=== PATIENT | female | born 2000 | race Asian ===

== ENCOUNTER 2024-04-22 11:54 | Emergency (ER) | payer OTHER ==
[~2024-04-22] VITALS: Ht 162.6 cm; Wt 63.6 kg
[2024-04-22 12:10] VITALS: BP 112/79; TEMP 98.1
[2024-04-22] MEDS ORDERED: ZOFRAN ODT4 MG PO (13:45)
[2024-04-22] MEDS ORDERED: Home Ondansetron ODT 4 MG #2 ODT/PACK PO ONE (13:45)
[2024-04-22 13:53] VITALS: PULSE 78
== END 2024-04-22 13:50 | disposition home or self-care (01) ==
LOC: COL.ER 11:54
DX: S09.90XA Unspecified injury of head, initial encounter (principal); W01.198A Fall on same level from slipping, tripping and stumbling with subsequent striking against other object, initial encounter; Y93.02 Activity, running